=== PATIENT | female | born 1965 | race Native Hawaiian/Other Pacific Islander ===

== ENCOUNTER 2017-01-21 07:52 | Emergency (ER) | payer OTHER ==
[~2017-01-21] VITALS: Ht 152.4 cm; Wt 54.4 kg
[~2017-01-21 07:52] MED LIST: ACET7.5T70 PO; ALPR0.5T24 PO; AMOX500C85 PO; PHEN100C15 PO; PHENYTOIN EX100 MG PO
[2017-01-21 08:55] VITALS: BP 138/68; TEMP 97.8
== END 2017-01-21 08:56 | disposition home or self-care (01) ==
LOC: ED 07:52
DX: S50.862A Insect bite (nonvenomous) of left forearm, initial encounter (principal); L08.9 Local infection of the skin and subcutaneous tissue, unspecified; L03.114 Cellulitis of left upper limb; W57.XXXA Bitten or stung by nonvenomous insect and other nonvenomous arthropods, initial encounter; Z91.14 Patient's other noncompliance with medication regimen
CPT/HCPCS: 99282

== ENCOUNTER 2020-11-26 12:17 | Observation (INO) | payer OTHER ==
[~2020-11-26] VITALS: Ht 144.8 cm; Wt 63.5 kg
[2020-11-26 13:29] LABS: PLATELET COUNT 380 K/uL (152-353)
[2020-11-26 13:43] VITALS: BP 144/74; TEMP 101.7; Ht 144.8 cm; Wt 63.5 kg
[2020-11-26 14:12] LABS: POTASSIUM 2.8 mmol/L (3.6-5.2)
[2020-11-26 16:00] VITALS: BP 113/47; TEMP 100.6
[2020-11-26 20:00] VITALS: BP 97/55; TEMP 97.5
[2020-11-27] VITALS (7 sets, daily range): BP systolic 91–144; BP diastolic 53–77; TEMP 97.5–98.5
[2020-11-27 07:06] LABS: PLATELET COUNT 349 K/uL (152-353)
[2020-11-27 08:05] LABS: POTASSIUM 3.5 mmol/L (3.6-5.2)
[2020-11-28 00:30] VITALS: BP 122/70; TEMP 98.3
[2020-11-28 04:00] VITALS: BP 126/73; TEMP 98.5
[2020-11-28 08:00] VITALS: BP 118/68; TEMP 98
[2020-11-28 09:08] LABS: PLATELET COUNT 466 K/uL (152-353)
== END 2020-11-28 16:30 | disposition home or self-care (01) ==
LOC: MED/SURG 12:17
PROVIDERS: ADMIT Family Medicine; ATTEND Family Medicine
DX: U07.1 COVID-19 (principal); J12.82 Pneumonia due to coronavirus disease 2019
CPT/HCPCS: 36600; 80053; 80307; 80320; 82728; 82805; 82948; 83735; 84100; 85027; 85379; 86140; 86900; 86901; 87635; 93005; 94667; 94668; 94760; 96365; 96366; 96367; 96372; 96375; 99220; G0378; G0379; J0456; J0696; J1650; J1885; J3480; P9017; U0003

== ENCOUNTER 2021-11-06 16:04 | Emergency (ER) | payer OTHER ==
[~2021-11-06] VITALS: Ht 144.8 cm; Wt 63.5 kg
[2021-11-06 16:04] VITALS: BP 111/66; TEMP 98
== END 2021-11-06 17:50 | disposition left against medical advice (07) ==
LOC: ED 16:04
DX: S01.01XA Laceration without foreign body of scalp, initial encounter (principal); Y04.2XXA Assault by strike against or bumped into by another person, initial encounter; Y92.89 Other specified places as the place of occurrence of the external cause; Z53.29 Procedure and treatment not carried out because of patient's decision for other reasons
CPT/HCPCS: 90471; 90715; 99282

== ENCOUNTER 2021-11-07 09:41 | Emergency (ER) | payer OTHER ==
[~2021-11-07] VITALS: Ht 144.8 cm; Wt 63.5 kg
[2021-11-07 09:51] VITALS: TEMP 97
[2021-11-07 10:36] LABS: PLATELET COUNT 471 K/uL (152-353)
[2021-11-07 11:21] LABS: POTASSIUM 3.3 mmol/L (3.6-5.2); SODIUM 139 mmol/L (136-145)
[2021-11-07 12:00] VITALS: BP 118/66
== END 2021-11-07 12:08 | disposition home or self-care (01) ==
LOC: ED 09:41
PROVIDERS: Hospitalist
DX: S09.8XXD Other specified injuries of head, subsequent encounter (principal); R51.9 Headache, unspecified; R56.9 Unspecified convulsions; W18.39XD Other fall on same level, subsequent encounter; Y92.89 Other specified places as the place of occurrence of the external cause
CPT/HCPCS: 80053; 80185; 80320; 85007; 85027; 85610; 85730; 96372; 99283; J0690; J1885